=== PATIENT | male | born 2000 | race Hispanic/Latino ===

== ENCOUNTER 2022-10-17 07:22 | Emergency (ER) | payer SELFPAY ==
[~2022-10-17] VITALS: Ht 177.8 cm; Wt 70.3 kg
[2022-10-17 07:45] VITALS: O2SAT 100
[2022-10-17] MEDS ORDERED: AMOXICILLIN500 MG PO (07:45)
== END 2022-10-17 08:16 | disposition home or self-care (01) ==
LOC: ER 07:34
DX: R50.9 Fever, unspecified (principal); J02.0 Streptococcal pharyngitis
CPT/HCPCS: 99283

== ENCOUNTER 2023-03-21 14:15 | Emergency (ER) | payer SELFPAY ==
[~2023-03-21] VITALS: Ht 190.5 cm; Wt 83.9 kg
[~2023-03-21 14:15] MED LIST: AMOXICILLIN500 MG PO
[2023-03-21] MEDS ORDERED: PREDNISONE 20 MG TAB PO ONE (14:45)
[2023-03-21] MEDS ORDERED: LEVOFLOXACIN 500 MG TAB PO ONE (14:45)
[2023-03-21] MEDS ORDERED: OFLOXACIN5 ML OT (14:54)
[2023-03-21] MEDS ORDERED: PREDNISONE20 MG PO (14:54)
[2023-03-21] MEDS ORDERED: AUGMENTIN 500-1 EACH PO (14:54)
[2023-03-21] MEDS ORDERED: IBUPROFEN600 MG PO (14:57)
[2023-03-21 15:21] VITALS: BP 124/82; PULSE 92; RESP 18; TEMP 98.7; O2SAT 100
== END 2023-03-21 15:23 | disposition home or self-care (01) ==
LOC: ER 14:19
DX: H60.91 Unspecified otitis externa, right ear (principal); H66.91 Otitis media, unspecified, right ear; J06.9 Acute upper respiratory infection, unspecified
CPT/HCPCS: 99283; J7512